=== PATIENT | female | born 1980 | race Hispanic/Latino ===

== ENCOUNTER 2021-10-16 20:45 | Emergency (ER) | payer OTHER ==
[~2021-10-16] VITALS: Ht 160 cm; Wt 65.8 kg
[2021-10-16 21:06] VITALS: BP 140/70
== END 2021-10-16 22:30 | disposition home or self-care (01) ==
LOC: EDH 20:45
DX: S83.004A Unspecified dislocation of right patella, initial encounter (principal); S83.91XA Sprain of unspecified site of right knee, initial encounter; X58.XXXA Exposure to other specified factors, initial encounter; Y93.89 Activity, other specified; Y92.89 Other specified places as the place of occurrence of the external cause; Y99.8 Other external cause status
CPT/HCPCS: 29505; 73562